=== PATIENT | female | born 1940 | race Caucasian/White ===

== ENCOUNTER → 2024-05-16 08:13 | Outpatient (REF) | payer MEDICARE, SELFPAY ==
[2024-05-17 08:22] LABS: Color, Urine Yellow (Yellow); Glucose, Dipstick Normal (Normal); Ketone-Dipstick Negative (Negative); Leukocyte Esterase-Dipstick 100 /ul (Negative); Nitrite-Dipstick Negative (Negative); Occult Blood-Urine Negative /ul (Negative); Protein-Dipstick Negative (Negative); Specific Gravity, Urine 1.015 (1.002-1.030); Urine Bilirubin Dipstick Negative (Negative); Urine Clarity Sl. Cloudy (Clear); Urine Urobilinogen Normal (Normal)
== END ==
LOC: OLS.ACW300 08:13
PROVIDERS: Visit Provider Internal Medicine
DX: G30.1 Alzheimer's disease with late onset (principal); R62.7 Adult failure to thrive; R41.841 Cognitive communication deficit; M62.81 Muscle weakness (generalized); E43 Unspecified severe protein-calorie malnutrition; D50.9 Iron deficiency anemia, unspecified
CPT/HCPCS: 81002; 87086; 87088